=== PATIENT | male | born 1940 | race Caucasian/White ===

== ENCOUNTER 2023-10-25 10:47 | Emergency (ER) | payer OTHER ==
[~2023-10-25] VITALS: Ht 170.2 cm; Wt 104.3 kg
[2023-10-25 10:47] VITALS: BP_SYST 166; PULSE 98; RESP 18; TEMP 97.6; O2SAT 94
[~2023-10-25 10:47] MED LIST: GLU500 PO; HYDR-3919 PO; LISI40TA13 PO; METF-833 PO; METO-442 PO; METO50TA16 PO; OMEP20CA15 PO; RIVA10TA PO
[2023-10-25 12:41] VITALS: BP_SYST 166; PULSE 98; RESP 18; TEMP 97.6; O2SAT 94
== END 2023-10-25 12:41 | disposition home or self-care (01) ==
LOC: SED 10:47
DX: T83.091A Other mechanical complication of indwelling urethral catheter, initial encounter (principal); R31.9 Hematuria, unspecified; E11.9 Type 2 diabetes mellitus without complications; I10 Essential (primary) hypertension; Z79.899 Other long term (current) drug therapy
CPT/HCPCS: 99281